=== PATIENT | male | born 1990 | race Two or more races ===

== ENCOUNTER 2018-08-05 15:56 | Emergency (ER) | payer SELFPAY ==
[~2018-08-05] VITALS: Ht 167.6 cm; Wt 61.2 kg
[2018-08-05 16:00] VITALS: BP 124/72
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
[2018-08-05] MEDS ORDERED: Methocarbamol 750mg tab ORAL ONE (16:15)
[2018-08-05] MEDS ORDERED: Ketorolac 60mg Inj IM ONE (16:15)
--- NOTE | 2018-08-05 16:43 | Diagnostic Imaging Report ---
EXAM: XR Chest, 2 Views CLINICAL HISTORY: PAIN TECHNIQUE: Frontal and lateral views of the chest. COMPARISON: No relevant prior studies available. FINDINGS: Lungs: No consolidation. Pleural space: Unremarkable. No pneumothorax. Heart: Unremarkable. No cardiomegaly. Mediastinum: Unremarkable. Bones/joints: No acute fracture. IMPRESSION: No acute cardiopulmonary disease.
--- NOTE | 2018-08-05 16:43 | Diagnostic Imaging Report ---
EXAM: XR Right Wrist Complete, 3 or More Views CLINICAL HISTORY: PAIN TECHNIQUE: Frontal, lateral and oblique views of the right wrist. COMPARISON: No relevant prior studies available. FINDINGS: Bones/joints: No acute fracture. Soft tissues: No radiodense foreign body. IMPRESSION: No acute fracture.
--- NOTE | 2018-08-05 16:44 | Diagnostic Imaging Report ---
EXAM: XR Left Knee, 3 views CLINICAL HISTORY: PAIN TECHNIQUE: Three views of the left knee. COMPARISON: No relevant prior studies available. FINDINGS: Bones/joints: No acute fracture. Trace effusion. Soft tissues: No radiodense foreign body. Soft tissue swelling IMPRESSION: No acute fracture.
[2018-08-05] MEDS ORDERED: ROBAXIN-750750 MG PO (16:49)
[2018-08-05] MEDS ORDERED: IBUPROFEN600 MG ORAL (16:49)
[2018-08-05 17:01] VITALS: BP 118/74
--- NOTE | 2018-08-05 17:03 | NUR ---
ED Nurse Note: Patient is being discharged from medical care with mom. Awake, alert and oriented x3. ID band were removed. Patient ambulated out with all personal belongings with steady gait.
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
== END 2018-08-05 17:00 | disposition home or self-care (01) ==
LOC: EMR 16:16
DX: S29.012A Strain of muscle and tendon of back wall of thorax, initial encounter (principal); S80.02XA Contusion of left knee, initial encounter; S20.219A Contusion of unspecified front wall of thorax, initial encounter; V43.52XA Car driver injured in collision with other type car in traffic accident, initial encounter; Y92.410 Unspecified street and highway as the place of occurrence of the external cause; M25.531 Pain in right wrist
CPT/HCPCS: 71046; 96372; 99284